=== PATIENT | male | born 1935 | race American Indian/Alaskan Native ===

== ENCOUNTER 2017-06-10 10:35 | Observation (INO) | payer OTHER ==
--- NOTE | 2017-06-10 12:13 | PDOC ---
History of Present Illness - General Chief Complaint: Lightheaded Stated Complaint: DIZZINESS Time Seen by Provider: 06/10/17 11:18 History Source: Patient, Family (daughter is translating) Exam Limitations: No Limitations - History of Present Illness Initial Comments: 06/10/17 12:07 The patient is a 81M with a PMH of HTN, pacemaker, and gout who presents to the ED with complaints of dizziness. The patient states that he has had 1 second episodes of the room spinning on and off for 3 weeks. He had an episode last night and that is what brought him to the ER this morning. He states that after his episodes of spinning, his feels his heart race and then slow down. This happens mostly at night when he lays down. He denies any symptoms of CP, SOB, nausea, vomiting, or lightheadedness during these episodes. Past History - Past Medical History Allergies/Adverse Reactions: Allergies Allergy/AdvReac Type Severity Reaction Status Date / Time No Known Allergies Allergy Verified 06/10/17 10:46 Home Medications: Ambulatory Orders Allopurinol [Zyloprim -] 100 mg PO DAILY 04/16/17 Amlodipine Besylate 5 mg PO DAILY 04/16/17 Indomethacin [Indocin -] 50 mg PO TID #21 capsule 04/16/17 Cardiac Disorders: Yes COPD: No HTN: Yes Hypercholesterolemia: Yes - Surgical History Cardiac Surgery: Yes (PACEMAKER) - Immunization History Immunization Up to Date: Yes - Suicide/Smoking/Psychosocial Hx Smoking History: Never smoked Hx Alcohol Use: No Drug/Substance Use Hx: No Substance Use Type: None Review of Systems - Review of Systems Able to Perform ROS?: Yes Comments:: 06/10/17 15:43 GENERAL/CONSTITUTIONAL: No fever or chills. No weakness. HEAD, EYES, EARS, NOSE AND THROAT: No change in vision. No ear pain or discharge. No sore throat. GASTROINTESTINAL: No nausea, vomiting, diarrhea, constipation, or abdominal pain. GENITOURINARY: No dysuria, frequency, hematuria, or change in urination. CARDIOVASCULAR: No chest pain, palpitations, or lightheadedness. RESPIRATORY: No cough, wheezing, shortness of breath, or hemoptysis. MUSCULOSKELETAL: No joint or muscle swelling or pain. No neck or back pain. SKIN: No rash or lesions. NEUROLOGIC: Positive for dizziness/vertiginous symptoms. Positive for numbness of his L temporal scalp. No headache, tingling, weakness, loss of consciousness , or change in strength/sensation. ENDOCRINE: No increased thirst. No abnormal weight change. HEMATOLOGIC/LYMPHATIC: No anemia, easy bleeding, or history of blood clots. ALLERGIC/IMMUNOLOGIC: No hives or skin allergy. Is the patient limited [place] proficient: No *Physical Exam - Vital Signs Last Vital Signs Temp Pulse Resp BP Pulse Ox 98 H 18 113/72 99 06/10/17 10:43 06/10/17 10:43 06/10/17 10:43 06/10/17 10:43 - Physical Exam Comments: 06/10/17 15:44 GENERAL: Well developed, well nourished. Awake and alert. No acute distress. HEENT: Normocephalic, atraumatic. Hearing grossly normal. Moist mucous membranes. PERRLA, EOMI. No conjunctival pallor. Sclera are non-icteric. Oropharynx is clear. NECK: Supple. Full ROM. No JVD. Carotid pulses 2+ and symmetric, without bruits. CARDIOVASCULAR: Regular rate and rhythm. No murmurs, rubs, or gallops. Distal pulses are 2+ and symmetric. PULMONARY: No evidence of respiratory distress. Lungs clear to auscultation bilaterally. No wheezing, rales or rhonchi. ABDOMINAL: Soft. Non-tender. Non-distended. No rebound or guarding. No organomegaly. Normoactive bowel sounds. GENITOURINARY: No CVA tenderness bilaterally. MUSCULOSKELETAL: Normal range of motion at all joints. No bony deformities or tenderness. EXTREMITIES: No cyanosis. No clubbing. No edema. No calf tenderness. SKIN: Warm and dry. Normal capillary refill. No rashes. No jaundice. NEUROLOGICAL: Alert, awake, appropriate. Cranial nerves 2-12 intact. No deficits to light touch and temperature in face, upper extremities and lower extremities. No motor deficits in the in face, upper extremities and lower extremities. Normal speech. Gait is normal without ataxia. PSYCHIATRIC: Cooperative. Good eye contact. Appropriate mood and affect. ED Treatment Course - LABORATORY CBC & Chemistry Diagram: 06/10/17 12:40 06/10/17 12:40 Medical Decision Making - Medical Decision Making 06/10/17 14:54 The patient is a 81M with a PMH of HTN and gout, s/p pacemaker, who presents to the ED with complaints of dizziness x 3 weeks and L sided scalp numbness. There is a strong concern for a small stroke that happened and is causing him to experience vertiginous symptoms. I am also concerned for temporal arteritis. Labs and imaging sent. CBC and CMP WNL. CRP elevated. Patient is refusing to stay in observation overnight for a neurology workup. I have explained to him that he has a much higher risk of larger stroke if this is already a smaller stroke. I explained to him the risks of temporal arteritis and that blindness can result secondary to this. The patient understands and still wants to leave AMA. 06/10/17 15:27 CRP is to 1.6. My attending and I have discussed that the patient cannot leave the hospital. Patient and daughter agree. Paging Dr. Toña Pickard. 06/10/17 15:45 CT head is negative for acute pathology. 06/10/17 17:21 Hospitalist gely. Neurologist Mykel hong. 06/10/17 17:35 Hospitalist team accepts for tele-obs. *DC/Admit/Observation/Transfer Diagnosis at time of Disposition: Stroke Qualifiers: CVA mechanism: other Qualified Code(s): I63.8 - Other cerebral infarction - Discharge Dispostion Condition at time of disposition: Stable Admit: Yes - Referrals - Patient Instructions - Post Discharge Activity
[2017-06-10 12:51] LABS: BASO # 0.1 #; BASO % 1.3 % (0-2.0); EOS # 0.2 #; EOS % 2.1 % (0-4.5); LYMPH # 2.4; MCH 25.1 pg (25.7-33.7); MCHC 32.6 g/dl (32.0-35.9); MEAN PLT VOLUME 6.1 fl (7.5-11.1); MONO # 0.8 #; NEUT # 6.3 #; NEUT % 64.1 % (42.8-82.8); PLATELET COUNT 284 K/MM3 (134-434); RDW 14.2 % (11.9-15.9); WHITE BLOOD COUNT 9.9 K/mm3 (4.0-10.0)
[2017-06-10 13:15] LABS: ALBUMIN 4.1 g/dl (3.4-5.0); ANION GAP 6 (8-16); CALCIUM 9.3 mg/dL (8.5-10.1); CO2 28 mmol/L (21-32); CREATININE 1.1 mg/dL (0.7-1.3); GLUCOSE,RANDOM 123 mg/dL (74-106); SGOT/AST 11 U/L (15-37); SGPT/ALT 17 U/L (12-78)
[2017-06-10 13:19] LABS: ALK PHOS 92 U/L (45-117); BILIRUBIN,TOTAL 0.5 mg/dL (0.2-1.0); CPK 86 IU/L (39-308); TOT PROT 8.1 g/dl (6.4-8.2); TROPONIN I < 0.02 ng/ml (0.00-0.05)
--- NOTE | 2017-06-10 13:34 | PDOC ---
Attending Attestation - HPI HPI: 06/10/17 13:48 The patient is a 81 year old male, with a significant past medical history of hypertension, s/p pacemaker, hyperlipidemia, and gout, who presents to the emergency department with 2 weeks of intermittent, non-positional, room spinning sensation which lasts for about a second and resolves on its own. He states he feels his heart go very fast than very slow as he experiences the room spinning. He denies chest pain, shortness of breath, headache. He denies fever, chills, nausea, vomit, diarrhea and constipation. He denies dysuria, frequency, urgency and hematuria. - Physicial Exam PE: 06/10/17 13:48 Vitals: Triage vital signs reviewed General Appearance: No acute distress, well nourished, well developed Head: Atraumatic Eyes: (+) Right horizontal nystagmus. Pupils equal reactive round, extraocular movement intact Ears: TM's normal bilaterally Nose: Nares patent bilaterally; no nasal congestion Throat: Posterior oropharynx without erythema, mucous membranes moist Neck: Supple; No nuchal rigidity Chest Wall: Nontender Cardiac: Regular rate and rhythm, no murmurs, no rubs, no gallops Lungs: Clear to auscultation bilateral, good air movement bilaterally Abdomen: Soft, nondistended, normal bowel sounds, nontender to palpation Genitourinary: Rectal: Exam deferred Extremities: Full range of motion to all extremities, no cyanosis, clubbing, or edema Skin: Warm and dry, no rashes or lesions, no rash, no petechiae Neuro: AOX3; Cranial Nerves 2-12 grossly intact, Strength intact to all extremities, Sensation intact to all extremities, gait normal Psych: Normal mood, normal affect - Medical Decision Making 06/10/17 13:50 The patient is a 81 year old male, with a significant past medical history of hypertension, s/p pacemaker, hyperlipidemia, and gout, who presents to the emergency department with 2 weeks of intermittent, non-positional, room spinning sensation which lasts for about a second and resolves on its own. Plan: EKG, CRP, erythrocyte sediment, and a head CT. Then will reassess ___- 06/10/17 13:53 Documentation prepared by Heena Brand, acting as claim review medical director for Boris Freeman MD <Heena Brand - Last Filed: 06/10/17 13:52> - ED Attending Attestation I have performed the following: I have examined & evaluated the patient, The case was reviewed & discussed with the resident, I agree w/resident's findings & plan, Exceptions are as noted - Medical Decision Making 06/10/17 16:00 Patient with 1 week history of intermittent vertigo also with some discomfort over his right religious. CRP elevated. We'll consult neurology to evaluate for temporal arteritis, treat with steroids and admit to medicine for further management. <Boris Freeman - Last Filed: 06/10/17 17:33>
[2017-06-10] MEDS ORDERED: predniSONE 20 MG TABLET (UD) PO ONE (17:04)
[2017-06-10] MEDS ORDERED: predniSONE 20 MG TABLET (UD) ONE ×2 (17:19→17:22)
[2017-06-10] MEDS ORDERED: MECLIZINE HCL 12.5 MG TABLET PO PRN (17:41)
--- NOTE | 2017-06-10 17:45 | HP ---
CHIEF COMPLAINT: " Room spinning around me" PCP: Doesn't remember the name HISTORY OF PRESENT ILLNESS: Patient is an 81-year-old Czech speaking patient came in to the ED with the chief complaint of " Vertigo". As per the patient, he started having vertigo about 3 weeks ago, started suddenly, lasting for "1 sec" associated with right sided numbness in the temporal area. It usually occurs while laying down. Denies rashes, visual loss, pain in the jaw, neck, shoulder, headache, loc, seizure, chest pain, sob, cough, palpitation, abdominal pain, nausea or vomiting. Bowel/Bladder habit normal. Sleep/Appetite normal. ER course was notable for: (1) Afebrile, hemodynamically stable, ESR 48, CRP-1.3 (2) EKG: No ST or T wave changes, paced rhythm (3) Prednisone 40mg Recent Travel: None. Came from [place] 25 yrs ago. PAST MEDICAL HISTORY: Hypertension, Pacemaker (15 months ago) , Gout PAST SURGICAL HISTORY: Pacemaker placed Social History: Smoking: Former smoker, smoked tobacco and cigs for 10 yrs, quit 30 yrs ago. Alcohol: Denies Drugs: Denies Family History: Non contributory Allergies No Known Allergies Allergy (Verified 06/10/17 10:46) HOME MEDICATIONS: Home Medications Medication Instructions Recorded Allopurinol [Zyloprim -] 100 mg PO DAILY 04/16/17 Amlodipine Besylate 5 mg PO DAILY 04/16/17 Indomethacin [Indocin -] 50 mg PO TID #21 capsule 04/16/17 REVIEW OF SYSTEMS CONSTITUTIONAL: Absent: fever, chills, diaphoresis, generalized weakness, malaise, loss of appetite, weight change HEENT: Absent: rhinorrhea, nasal congestion, throat pain, throat swelling, difficulty swallowing, mouth swelling, ear pain, eye pain, visual changes CARDIOVASCULAR: Absent: chest pain, syncope, palpitations, irregular heart rate, lightheadedness , peripheral edema RESPIRATORY: Absent: cough, shortness of breath, dyspnea with exertion, orthopnea, wheezing, stridor, hemoptysis GASTROINTESTINAL: Absent: abdominal pain, abdominal distension, nausea, vomiting, diarrhea, constipation, melena, hematochezia GENITOURINARY: Absent: dysuria, frequency, urgency, hesitancy, hematuria, flank pain, genital pain MUSCULOSKELETAL: Absent: myalgia, arthralgia, joint swelling, back pain, neck pain SKIN: Absent: rash, itching, pallor HEMATOLOGIC/IMMUNOLOGIC: Absent: easy bleeding, easy bruising, lymphadenopathy, frequent infections ENDOCRINE: Absent: unexplained weight gain, unexplained weight loss, heat intolerance, cold intolerance NEUROLOGIC: Present: Numbness in the right temporal area, Vertigo Absent: headache, focal weakness or paresthesias, dizziness, unsteady gait, seizure, mental status changes, bladder or bowel incontinence PSYCHIATRIC: Absent: anxiety, depression, suicidal or homicidal ideation, hallucinations. PHYSICAL EXAMINATION Vital Signs - 24 hr 06/10/17 10:43 Pulse Rate 98 H Respiratory 18 Rate Blood Pressure 113/72 O2 Sat by Pulse 99 Oximetry (%) GENERAL: Elderly male, lying comfortably in bed, Awake, alert, and fully oriented, in no acute distress. HEAD: Normal with no signs of trauma. EYES: EOM intact, no pallor or icterus. EARS, NOSE, THROAT: Ears normal. Moist mucous membranes. NECK: Supple. LUNGS: B/L Breath sounds equal, clear to auscultation bilaterally. No wheezes, and no crackles. No accessory muscle use. HEART: Regular rate and rhythm, normal S1 and S2 without murmur. ABDOMEN: Soft, nontender, not distended, normoactive bowel sounds, no guarding, no rebound, no masses. No hepatomegaly or splenomegaly. MUSCULOSKELETAL: Normal range of motion at all joints. No bony deformities or tenderness. No CVA tenderness. UPPER EXTREMITIES: 2+ pulses, warm, well-perfused. No cyanosis. No clubbing. No peripheral edema. LOWER EXTREMITIES: 2+ pulses, warm, well-perfused. No calf tenderness. No peripheral edema. NEUROLOGICAL: No facial droop, power 5/5 in all extremities, Finger nose test normal, Reflexes 2+, Cranial nerves II-XII intact. Normal speech. Normal gait. PSYCHIATRIC: Cooperative. Good eye contact. Appropriate mood and affect. SKIN: Warm, dry, normal turgor, no rashes or lesions noted, normal capillary refill. Laboratory Results - last 24 hr 06/10/17 06/10/17 06/10/17 12:40 12:40 13:56 WBC 9.9 RBC 5.66 H Hgb 14.2 Hct 43.6 MCV 77.0 L MCH 25.1 L MCHC 32.6 RDW 14.2 Plt Count 284 MPV 6.1 L D Neutrophils % 64.1 Lymphocytes % 24.4 Monocytes % 8.1 Eosinophils % 2.1 Basophils % 1.3 ESR Sodium 134 L Potassium 4.7 Chloride 100 Carbon Dioxide 28 Anion Gap 6 L BUN 22 H Creatinine 1.1 D Creat Clearance w eGFR > 60 Random Glucose 123 H Calcium 9.3 Total Bilirubin 0.5 AST 11 L D ALT 17 Alkaline Phosphatase 92 D Creatine Kinase 86 Troponin I < 0.02 C-Reactive Protein 1.3 H Total Protein 8.1 D Albumin 4.1 D 06/10/17 13:56 WBC RBC Hgb Hct MCV MCH MCHC RDW Plt Count MPV Neutrophils % Lymphocytes % Monocytes % Eosinophils % Basophils % ESR 48 H Sodium Potassium Chloride Carbon Dioxide Anion Gap BUN Creatinine Creat Clearance w eGFR Random Glucose Calcium Total Bilirubin AST ALT Alkaline Phosphatase Creatine Kinase Troponin I C-Reactive Protein Total Protein Albumin ASSESSMENT/PLAN: Patient is an 81-year-old Czech speaking patient with significant past medical history of Hypertension and Gout came in to the ED with the chief complaint of " Vertigo". # Vertigo: Most likely due to BPPV c/o vertigo lasting for 1sec, positional + Unlikely Giant cell arteritis because ESR is not very elevated, no visual problems, no jaw pain, no pulsations in the temporal arteries, no headache Admit in Tele/Obs Continuous cardiac monitoring Meclizine 12.5mg PO TID PRN Discussed with Neurologist: Echo, carotid doppler to r/o other causes. # Hypertension-controlled Continue Amlodipine 5mg PO Daily # Gout-not in acute flare Continue Allopurinol 100mg PO Daily. # FEN Not in IV fluids, tolerating PO Electrolytes WNL Sodium controlled diet # Prophylaxis For GI: Not indicated For DVT: Early ambulation # Code Status: Full Code # Dispo: Duration of stay likely 1-2 days. Illness, Investigation and Plan of care explained to the patient. He verbalized understanding. Case discussed with Dr. Rios. Visit type - Emergency Visit Emergency Visit: Yes ED Registration Date: 06/10/17 Care time: The patient presented to the Emergency Department on the above date and was hospitalized for further evaluation of their emergent condition. - New Patient This patient is new to me today: Yes Date on this admission: 06/10/17 - Critical Care Critical Care patient: No
--- NOTE | 2017-06-10 18:01 | PN ---
Teaching Attending Note Name of Resident: Areli Diego ATTENDING PHYSICIAN STATEMENT I saw and evaluated the patient. I reviewed the resident's note and discussed the case with the resident. I agree with the resident's findings and plan as documented. SUBJECTIVE:81yo M with PMH HTn, gout and PPM presented to the ER with dizzyness. episodes occur only when laying down and last less than a second. been occuring for the past 3 weeks. assoc with R scalp numbness. no recent changes to medications. denies CP, SOB, fever, chills, blurred vision, vision loss, BADILLO, N/V/C/D OBJECTIVE: Last Vital Signs Temp Pulse Resp BP Pulse Ox 98 H 18 113/72 99 06/10/17 10:43 06/10/17 10:43 06/10/17 10:43 06/10/17 10:43 General NAD HEENT prominent R temporal artery, not pulsating, no nodules, not tender, no bruit CV S1 S2 RRR no carotid bruit LUngs CTA B/L no wheezing/rales/rhonchi abdomen soft NT/ND no abdominal bruit Extremities no pedal edema Neuro CN II -XII grossly intact strength and sensation grossly intact ASSESSMENT AND PLAN: 81yo M with PMH HTn, gout and PPM presented to the ER with dizzyness 1. Dizzyness- tele observation. continuous cardiac monitoring. concern for cerebellar infarct. check orthostatics. head CT negative. neuro consulted. concern by Er for temporal arteritis however low concern given no visual symptoms, BADILLO or pain over temporal region. elevated ESR but not suggestive of temporal arteritis. received prednisone 40mg in the ER. will hold for now. start meclizine prn 2. HTN- controlled. cont norvasc 3. gout- cont allopurinol 4. DVT ppx- EAM
[2017-06-10] MEDS: INDOMETHACIN 50 MG CAPSULE PO SCH (21:56)
--- NOTE | 2017-06-10 22:11 | CON.NEURO ---
Consult Consult Specialty:: neurology Reason for Consultation:: Temporal numbness - History of Present Illness Chief Complaint: Temporal numbness History of Present Illness: 81 Y/O M , originally from [place] w h/o HTN, s/p PPM P/W R temporal numbness. He states that he was at usual state of his health until 2 am yesterday when he woke up w heart palpitation and started having numbness and itching at R temporal ; he denies any visual symptoms , headache , neck pain , jaw claudication or temporal tenderness ; also c/o dizziness and room spinning sensation when lye flat for 3 weeks. 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 ) Physical Exam-Neuro Vital Signs: Vital Signs Temperature 98.0 F 06/10/17 18:17 Pulse Rate 85 06/10/17 18:17 Respiratory Rate 18 06/10/17 18:17 Blood Pressure 153/85 06/10/17 18:17 O2 Sat by Pulse Oximetry (%) 98 06/10/17 18:17 Constitutional: Yes: Well Nourished Neck: Yes: Supple Cardiovascular: Yes: Regular Rate and Rhythm Respiratory: Yes: CTA Bilaterally Musculoskeletal: Yes: WNL Labs: CBC, BMP 06/10/17 12:40 06/10/17 12:40 Imaging - Results Cat Scan: Report Reviewed (No acute events), Image Reviewed Assessment/Plan 81 y/o M p/w dizziness for the past 3 months and R temporal numbness / itching from yesterday , on exam no temporal tenderness or jaw claudication; no weakness or sensory deficit; ESR mildly elevated and CTH wo no acute events ; I doubt temporal arteritis ; ? underlying zoster preliminary symptoms ; Dizziness due to BPV . -repeat CTH wo in 24 hours - ot compatible w MRI -D/C steroid -CAROTID U/S -ECHO -B12, TSH, RPR, Vit D Health maintenance per primary team. Thx MATTHEW Rod MD [phone]
[2017-06-11] MEDS ORDERED: ACETAMINOPHEN 325 MG TABLET (FP) PO PRN (02:37)
[2017-06-11 02:53] VITALS: BMI 24.0
[2017-06-11] MEDS ORDERED: PT OWN MED DRAWER 7, Y5N ONE (06:13)
[2017-06-11] MEDS: INDOMETHACIN 50 MG CAPSULE PO SCH (06:30)
[2017-06-11 07:38] LABS: BASO % 0.4 % (0-2.0); LYMPH # 1.4; MCH 25.1 pg (25.7-33.7); MCHC 32.9 g/dl (32.0-35.9); MEAN CELL VOLUME 76.1 fl (80-96); MEAN PLT VOLUME 6.3 fl (7.5-11.1); MONO # 0.4 #; NEUT # 6.5 #; NEUT % 78.4 % (42.8-82.8); PLATELET COUNT 284 K/MM3 (134-434); WHITE BLOOD COUNT 8.2 K/mm3 (4.0-10.0)
[2017-06-11 07:51] LABS: ALBUMIN 3.3 g/dl (3.4-5.0); ANION GAP 10 (8-16); CALCIUM 9.3 mg/dL (8.5-10.1); CO2 24 mmol/L (21-32); GLUCOSE,RANDOM 189 mg/dL (74-106); SGPT/ALT 15 U/L (12-78)
[2017-06-11 07:54] LABS: ALK PHOS 81 U/L (45-117); BILIRUBIN,TOTAL 0.5 mg/dL (0.2-1.0); CREATININE 1.1 mg/dL (0.7-1.3); SGOT/AST 8 U/L (15-37); TOT PROT 7.6 g/dl (6.4-8.2)
[2017-06-11 09:02] VITALS: BP 153/85; PULSE 89; TEMP 97.9
[2017-06-11] MEDS ORDERED: ALLOPURINOL 100 MG TABLET (FP) PO SCH (10:00)
[2017-06-11] MEDS ORDERED: amLODIPine BESYLATE 5 MG TABLET (FP) PO SCH (10:00)
--- NOTE | 2017-06-11 11:11 | EKG ---
Test Reason : Blood Pressure : / mmHG Vent. Rate : 074 BPM Atrial Rate : 074 BPM P-R Int : 150 ms QRS Dur : 164 ms QT Int : 448 ms P-R-T Axes : 076 -56 118 degrees QTc Int : 497 ms Atrial-sensed ventricular-paced rhythm ABNORMAL ECG NO PREVIOUS ECGS AVAILABLE CLINICAL CORRELATION IS RECOMMENDED Confirmed by BETY LEON, LEVI ([id number]) on 06/11/2017 11:10:43 AM Referred By: Confirmed By:LEVI ALBERT MD
--- NOTE | 2017-06-11 11:46 | DS ---
Physical Exam: SUBJECTIVE: Patient seen and examined. no repeated episodes duriong hospital stay. denies PC, SOB, fever, chills, dysathric speech or weakness greater on one side. OBJECTIVE: Vital Signs Period Temp Pulse Resp BP Sys/Cuevas Pulse Ox Last 24 Hr 97.4 F-98.0 F 80-100 18-22 138-160/80-90 95-98 PHYSICAL EXAM GENERAL: The patient is awake, alert, and fully oriented, in no acute distress. HEAD: Normal with no signs of trauma. EYES: PERRL, extraocular movements intact, sclera anicteric, conjunctiva clear. ENT: Ears normal, nares patent, oropharynx clear without exudates, moist mucous membranes. NECK: Trachea midline, full range of motion, supple. LUNGS: Breath sounds equal, clear to auscultation bilaterally, no wheezes, no crackles, no accessory muscle use. HEART: Regular rate and rhythm, S1, S2 without murmur, rub or gallop. ABDOMEN: Soft, nontender, nondistended, normoactive bowel sounds, no guarding, no rebound, no hepatosplenomegaly, no masses. EXTREMITIES: 2+ pulses, warm, well-perfused, no edema. NEUROLOGICAL: Cranial nerves II through XII grossly intact. Normal speech, gait not observed. PSYCH: Normal mood, normal affect. SKIN: Warm, dry, normal turgor, no rashes or lesions noted. LABS Laboratory Results - last 24 hr 06/10/17 06/10/17 06/10/17 12:40 12:40 13:56 WBC 9.9 RBC 5.66 H Hgb 14.2 Hct 43.6 MCV 77.0 L MCH 25.1 L MCHC 32.6 RDW 14.2 Plt Count 284 MPV 6.1 L D Neutrophils % 64.1 Lymphocytes % 24.4 Monocytes % 8.1 Eosinophils % 2.1 Basophils % 1.3 ESR Sodium 134 L Potassium 4.7 Chloride 100 Carbon Dioxide 28 Anion Gap 6 L BUN 22 H Creatinine 1.1 D Creat Clearance w eGFR > 60 Random Glucose 123 H Calcium 9.3 Total Bilirubin 0.5 AST 11 L D ALT 17 Alkaline Phosphatase 92 D Creatine Kinase 86 Troponin I < 0.02 C-Reactive Protein 1.3 H Total Protein 8.1 D Albumin 4.1 D 06/10/17 06/11/17 06/11/17 13:56 06:30 06:30 WBC 8.2 RBC 5.25 Hgb 13.1 Hct 39.9 MCV 76.1 L MCH 25.1 L MCHC 32.9 RDW 14.0 Plt Count 284 MPV 6.3 L Neutrophils % 78.4 D Lymphocytes % 16.5 D Monocytes % 4.7 Eosinophils % 0.0 D Basophils % 0.4 ESR 48 H Sodium 132 L Potassium 4.9 Chloride 98 Carbon Dioxide 24 Anion Gap 10 BUN 21 H Creatinine 1.1 Creat Clearance w eGFR > 60 Random Glucose 189 H D Calcium 9.3 Total Bilirubin 0.5 AST 8 L D ALT 15 Alkaline Phosphatase 81 Creatine Kinase Troponin I C-Reactive Protein Total Protein 7.6 Albumin 3.3 L HOSPITAL COURSE: Date of Admission:06/10/17 Date of Discharge: 06/11/17 admitting diagnosis: Dizzyness. r/o CVA Pre hospital course 81yo M with PMH HTn, gout and PPM presented to the ER with dizzyness. episodes occur only when laying down and last less than a second. been occuring for the past 3 weeks. assoc with R scalp numbness. no recent changes to medications. denies CP, SOB, fever, chills, blurred vision, vision loss, BADILLO, N/V/C/D Subsequent hospital course Tele observation. orthostatics negative. CT head and carotid dopplers negative. concern for temporal arteritis and received a dose of steroids but symptoms not consistent with this. seen by neurologist whom agreed. Recommended repeating CT head which patient and son refused. has appt with PMD on 06/15/17. d/c home Minutes to complete discharge: 40 Discharge Summary Reason For Visit: CEREBROVASCULAR ACCIDNET Current Active Problems Dizziness (Acute) Stroke (Acute) Condition: Stable - Instructions Diet, Activity, Other Instructions: You were admitted to the hospital because you were dizzy. We were concern you were having a stroke or mini stroke known as TIA Reports here were negative. we recommended repeating the CT scan of your head but you refused. Increase your fluid intake. You should drink more water Follow up with your primary care doctor on 06/15/17. Inform him you were hospitalized for your dizzyness. If your dizzyness returns make an appointment with neurology. Information on the one you saw here has been provided If your symptoms worsen or develop weakness on one side of your body or inability to speak return to the hospital. Referrals: Josias Valentin MD [Staff Physician] - Disposition: HOME - Home Medications Comprehensive Discharge Medication List: Ambulatory Orders Allopurinol [Zyloprim -] 100 mg PO DAILY 04/16/17 Amlodipine Besylate 5 mg PO DAILY 04/16/17 Indomethacin [Indocin -] 50 mg PO TID #21 capsule 04/16/17 This patient is new to me today: No Emergency Visit: Yes ED Registration Date: 06/10/17 Care time: The patient presented to the Emergency Department on the above date and was hospitalized for further evaluation of their emergent condition. Critical Care patient: No - Discharge Referral Referred to [facility] Med P.C.: No
== END 2017-06-11 11:57 | disposition home or self-care (01) ==
LOC: JER 10:35 → JERBED 17:36 → J4S 20:21
PROVIDERS: ADMIT Internal Medicine; ATTEND Internal Medicine
DX: I63.8 Other cerebral infarction (principal); R55 Syncope and collapse; I10 Essential (primary) hypertension; E78.5 Hyperlipidemia, unspecified; Z95.0 Presence of cardiac pacemaker; M10.9 Gout, unspecified
CPT/HCPCS: 36415; 70450-TC; 80053; 82550; 84484; 85025; 85651; 86140; 93005; 93010; 93880-TC; 99285-25; G0378

== ENCOUNTER 2020-09-24 15:55 | Emergency (ER) | payer OTHER ==
[2020-09-24 16:33] VITALS: TEMP 98.5; BMI 20.9
[2020-09-24] MEDS ORDERED: SODIUM CHLORIDE 0.9% 500 ML INFUS.BAG IV ONE (18:16)
[2020-09-24 19:20] LABS: EOS % 0.8 % (0-4.5); HEMATOCRIT 41.6 % (35.4-49); HEMOGLOBIN 13.9 GM/dL (11.7-16.9); MCH 25.6 pg (25.7-33.7); MCHC 33.5 g/dl (32.0-35.9); MEAN CELL VOLUME 76.6 fl (80-96); MEAN PLT VOLUME 6.4 fl (7.5-11.1); MONO % 6.7 % (3.8-10.2); NEUT % 76.5 % (42.8-82.8); PLATELET COUNT 357 K/MM3 (134-434); RBC 5.42 M/mm3 (4.00-5.60); RDW 15.3 % (11.9-15.9); WHITE BLOOD COUNT 11.7 K/mm3 (4.0-10.0)
[2020-09-24 19:32] LABS: CHLORIDE 102 mmol/L (98-107); SODIUM 133 mmol/L (136-145)
[2020-09-24 19:35] LABS: CALCIUM 9.3 mg/dL (8.5-10.1)
[2020-09-24 19:36] LABS: ALBUMIN 3.4 g/dl (3.4-5.0); ANION GAP 8 MMOL/L (8-16); BLOOD UREA NITROGEN 19.3 mg/dL (7-18); CO2 24 mmol/L (21-32); GLUCOSE,RANDOM 123 mg/dL (74-106); MAGNESIUM 1.9 mg/dL (1.8-2.4)
[2020-09-24 19:39] LABS: CREATININE 1.1 mg/dL (0.55-1.3); PHOSPHOROUS 3.1 mg/dL (2.5-4.9); SGOT/AST 21 U/L (15-37); SGPT/ALT 28 U/L (13-61)
[2020-09-24 19:40] LABS: BILIRUBIN,TOTAL 0.7 mg/dL (0.2-1); TOT PROT 7.5 g/dl (6.4-8.2)
[2020-09-24 19:41] LABS: ALK PHOS 106 U/L (45-117)
[2020-09-24 20:09] LABS: ANISOCYTOSIS 1+; MACROCYTOSIS 0; PLATELET ESTIMATE NORMAL
[2020-09-24 22:14] LABS: URINE APPEARANCE CLEAR; URINE BILIRUBIN NEGATIVE (NEGATIVE); URINE COLOR YELLOW; URINE GLUCOSE (UA) NEGATIVE (NEGATIVE); URINE KETONE NEGATIVE (NEGATIVE); URINE LEUK ESTERASE NEGATIVE (NEGATIVE); URINE NITRITE NEGATIVE (NEGATIVE); URINE PROTEIN NEGATIVE (NEGATIVE); URINE UROBILINOGEN 0.2 mg/dL (0.2-1.0)
[2020-09-24 23:45] VITALS: BP 127/71; PULSE 84
[2020-09-25 07:08] LABS: SARS-CoV-2 NAA Not Detected (Not Detected)
== END 2020-09-25 00:12 | disposition home or self-care (01) ==
LOC: JER 15:55
DX: R53.1 Weakness (principal); R19.7 Diarrhea, unspecified
CPT/HCPCS: 36415; 71045-TC-FY; 74177-TC; 80053; 81003; 82550; 83735; 84100; 84484; 85025; 93005; 93010; 99285-25; C9803; Q9967; U0003; U0005

== ENCOUNTER 2020-10-19 09:36 | Emergency (ER) | payer OTHER ==
[2020-10-19 09:46] VITALS: BP 167/79; PULSE 97; TEMP 97.6; BMI 23.8
[2020-10-20 02:09] LABS: SARS-CoV-2 NAA Not Detected (Not Detected)
== END 2020-10-19 11:48 | disposition home or self-care (01) ==
LOC: JER 09:36
DX: J06.9 Acute upper respiratory infection, unspecified (principal)
CPT/HCPCS: 87880; 99284-25; C9803; U0003; U0005

== ENCOUNTER 2021-07-20 09:56 | Emergency (ER) | payer OTHER ==
[2021-07-20 10:11] VITALS: BMI 27.4
[2021-07-20 12:02] LABS: BASO % 1.3 % (0-2.0); HEMATOCRIT 42.3 % (35.4-49); HEMOGLOBIN 14.2 GM/dL (11.7-16.9); LYMPH % 20.2 % (8-40); MCH 26.5 pg (25.7-33.7); MCHC 33.6 g/dl (32.0-35.9); MEAN CELL VOLUME 78.8 fl (80-96); MEAN PLT VOLUME 6.5 fl (7.5-11.1); NEUT % 69.5 % (42.8-82.8); PLATELET COUNT 360 10^3/uL (134-434); RBC 5.37 M/mm3 (4.00-5.60); RDW 15.4 % (11.9-15.9); WHITE BLOOD COUNT 9.8 K/mm3 (4.0-10.0)
[2021-07-20 12:24] LABS: INR 1.11 (0.83-1.09); PROTHROMBIN TIME (PATIENT) 12.8 SEC (9.7-13.0)
[2021-07-20 12:28] LABS: BLOOD UREA NITROGEN 21.2 mg/dL (7-18)
[2021-07-20 12:29] LABS: ALBUMIN 3.4 g/dl (3.4-5.0); CALCIUM 9.7 mg/dL (8.5-10.1)
[2021-07-20 12:30] LABS: URIC ACID 7.8 mg/dL (2.6-7.2)
[2021-07-20 12:33] LABS: BILIRUBIN,TOTAL 0.6 mg/dL (0.2-1); CREATININE 1.1 mg/dL (0.55-1.3); TOT PROT 7.3 g/dl (6.4-8.2)
[2021-07-20] MEDS ORDERED: COLCHICINE 0.6 MG TAB PO ONE (12:59)
[2021-07-20 13:38] LABS: ERYTHROCYTE SEDIMENTATION RATE 31 mm/hr (0-20)
[2021-07-20 14:42] VITALS: BP 133/59; PULSE 70
[2021-07-20 14:43] VITALS: TEMP 98.2
== END 2021-07-20 14:43 | disposition home or self-care (01) ==
LOC: JER 09:56
DX: M10.9 Gout, unspecified (principal)
CPT/HCPCS: 36415; 73130-TC-LT-FY; 80053; 84550; 85025; 85610; 85651; 86140; 87040; 99284-25

== ENCOUNTER 2021-12-08 11:34 | Emergency (ER) | payer OTHER ==
[2021-12-08 12:23] VITALS: BMI 17.2
[2021-12-08] MEDS ORDERED: ASPIRIN 81 MG CHEWABLE TABLETS PO ONE (12:56)
[2021-12-08 14:39] LABS: BASO % 1.9 % (0-2.0); HEMATOCRIT 42.4 % (35.4-49); HEMOGLOBIN 14.2 GM/dL (11.7-16.9); LYMPH % 29.9 % (8-40); MCH 26.1 pg (25.7-33.7); MCHC 33.6 g/dl (32.0-35.9); MEAN CELL VOLUME 77.8 fl (80-96); MEAN PLT VOLUME 6.1 fl (7.5-11.1); MONO % 9.5 % (3.8-10.2); NEUT % 54.7 % (42.8-82.8); PLATELET COUNT 327 10^3/uL (134-434); RBC 5.44 M/mm3 (4.00-5.60); RDW 15.5 % (11.9-15.9); WHITE BLOOD COUNT 8.4 K/mm3 (4.0-10.0)
[2021-12-08 14:51] LABS: INR 1.06 (0.83-1.09); PROTHROMBIN TIME (PATIENT) 12.2 SEC (9.7-13.0)
[2021-12-08 14:54] LABS: ACTIVATED PTT 30.9 SECONDS (25.2-36.5)
[2021-12-08 14:56] LABS: CALCIUM 9.3 mg/dL (8.5-10.1)
[2021-12-08 14:57] LABS: ALBUMIN 3.4 g/dl (3.4-5.0); BLOOD UREA NITROGEN 22.5 mg/dL (7-18); MAGNESIUM 2.3 mg/dL (1.8-2.4)
[2021-12-08 15:01] LABS: BILIRUBIN,TOTAL 0.5 mg/dL (0.2-1); TOT PROT 7.3 g/dl (6.4-8.2)
[2021-12-08] MEDS ORDERED: ASPIRIN 81 MG CHEWABLE TABLETS ONE (15:11)
[2021-12-08 16:52] VITALS: BP 163/73; PULSE 77; TEMP 97.5
== END 2021-12-08 17:53 | disposition left against medical advice (07) ==
LOC: JER 11:34
DX: M79.602 Pain in left arm (principal)
CPT/HCPCS: 36415; 71045-TC-FY; 80053; 83735; 83880; 84484; 85025; 85610; 85730; 93005; 93010; 99285-25

== ENCOUNTER 2022-01-08 11:05 | Observation (INO) | payer OTHER ==
[2022-01-08 12:56] LABS: BASO % 0.9 % (0-2.0); EOS % 3.7 % (0-4.5); HEMATOCRIT 43.6 % (35.4-49); HEMOGLOBIN 14.4 GM/dL (11.7-16.9); LYMPH % 30.4 % (8-40); MCH 25.8 pg (25.7-33.7); MEAN CELL VOLUME 78.1 fl (80-96); MEAN PLT VOLUME 6.4 fl (7.5-11.1); MONO % 7.9 % (3.8-10.2); NEUT % 57.1 % (42.8-82.8); PLATELET COUNT 368 10^3/uL (134-434); RBC 5.58 M/mm3 (4.00-5.60); RDW 15.5 % (11.9-15.9); WHITE BLOOD COUNT 7.4 K/mm3 (4.0-10.0)
[2022-01-08 13:14] LABS: INR 1.08 (0.83-1.09); PROTHROMBIN TIME (PATIENT) 12.4 SEC (9.7-13.0)
[2022-01-08 13:28] LABS: CALCIUM 9.3 mg/dL (8.5-10.1)
[2022-01-08 13:29] LABS: ALBUMIN 3.6 g/dl (3.4-5.0); BLOOD UREA NITROGEN 26.6 mg/dL (7-18)
[2022-01-08 13:34] LABS: BILIRUBIN,TOTAL 0.6 mg/dL (0.2-1); TOT PROT 7.2 g/dl (6.4-8.2)
[2022-01-08] MEDS ORDERED: ACETAMINOPHEN 325 MG TABLET (FP) PO PRN (16:31)
[2022-01-08] MEDS ORDERED: ATORVASTATIN CA 20 MG TABLET (FP) PO SCH (22:00)
[2022-01-09] MEDS: HEPARIN NA (PORCINE) 5,000 UNITS/ML 1ML VIAL SQ SCH ×2 (01:25→09:18)
[2022-01-09] MEDS: SACUBITRIL/VALSARTAN 24 MG-26 MG TABLET PO SCH ×2 (01:25→09:18)
[2022-01-09] MEDS: metoPROLOL SUCCINATE 25 MG TAB.SR.24H (FP) PO SCH ×2 (01:29→09:17)
[2022-01-09 02:14] VITALS: RESP 18; BMI 22.9
[2022-01-09 09:09] LABS: HEMATOCRIT 43.4 % (35.4-49); HEMOGLOBIN 14.3 GM/dL (11.7-16.9); MCH 25.9 pg (25.7-33.7); MCHC 32.9 g/dl (32.0-35.9); MEAN CELL VOLUME 78.7 fl (80-96); MEAN PLT VOLUME 6.1 fl (7.5-11.1); PLATELET COUNT 358 10^3/uL (134-434); RBC 5.52 M/mm3 (4.00-5.60); RDW 15.3 % (11.9-15.9); WHITE BLOOD COUNT 9.2 K/mm3 (4.0-10.0)
[2022-01-09 09:35] LABS: CALCIUM 9.5 mg/dL (8.5-10.1)
[2022-01-09 09:36] LABS: ALBUMIN 3.4 g/dl (3.4-5.0); BLOOD UREA NITROGEN 25.8 mg/dL (7-18)
[2022-01-09 09:39] LABS: CREATININE 1.1 mg/dL (0.55-1.3)
[2022-01-09] MEDS ORDERED: FUROSEMIDE 20 MG TABLET (FP) PO SCH (10:00)
[2022-01-09] MEDS ORDERED: ASPIRIN COATED 81 MG TABLET.EC PO SCH (10:00)
[2022-01-09] MEDS ORDERED: ALLOPURINOL 100 MG TABLET (FP) PO SCH (10:00)
[2022-01-09 13:17] LABS: N-TERMINAL BNP 325.2 pg/ml (5-450)
[2022-01-09 15:11] VITALS: BP 148/70; PULSE 70; TEMP 97.5
== END 2022-01-09 19:00 | disposition home or self-care (01) ==
LOC: JER 11:05 → JERBED 15:41 → J4S 01-09 01:00
PROVIDERS: ADMIT Family Medicine; ATTEND Family Medicine
PROC: 3E013GC Introduction of Other Therapeutic Substance into Subcutaneous Tissue, Percutaneous Approach (ICD-10-PCS; principal; 2022-01-08)
DX: R07.89 Other chest pain (principal); I10 Essential (primary) hypertension; I25.10 Atherosclerotic heart disease of native coronary artery without angina pectoris; I25.5 Ischemic cardiomyopathy; M10.9 Gout, unspecified; R73.03 Prediabetes; Z95.0 Presence of cardiac pacemaker; Z95.5 Presence of coronary angioplasty implant and graft
CPT/HCPCS: 0241U-QW; 36415; 71046-TC-FY; 80053; 80061; 82550; 83036; 83690; 83880; 84439; 84443; 84484; 85025; 85027; 85610; 85730; 93005; 93010; 96372; 99285-25; G0378; J1644

== ENCOUNTER 2022-08-02 09:31 | Inpatient (IN) | payer OTHER ==
[2022-08-02 09:39] VITALS: BMI 24.7
[2022-08-02 11:22] LABS: VENOUS O2 SATURATION 68.3 % (70-80); VENOUS PCO2 37.8 mmHg (38-52); VENOUS PH 7.36 (7.310-7.410)
[2022-08-02 11:23] LABS: BASO % 1.1 % (0-2.0); EOS % 1.2 % (0-4.5); HEMATOCRIT 41.3 % (35.4-49); HEMOGLOBIN 13.6 GM/dL (11.7-16.9); LYMPH % 17.6 % (8-40); MCH 26.5 pg (25.7-33.7); MCHC 32.9 g/dl (32.0-35.9); MEAN CELL VOLUME 80.5 fl (80-96); MEAN PLT VOLUME 6.4 fl (7.5-11.1); MONO % 8.5 % (3.8-10.2); NEUT % 71.6 % (42.8-82.8); PLATELET COUNT 398 10^3/uL (134-434); RBC 5.13 M/mm3 (4.00-5.60); RDW 14.1 % (11.9-15.9); WHITE BLOOD COUNT 12.9 K/mm3 (4.0-10.0)
[2022-08-02 11:52] LABS: ALBUMIN 3.2 g/dl (3.4-5.0); CALCIUM 9.5 mg/dL (8.5-10.1); MAGNESIUM 2.4 mg/dL (1.8-2.4)
[2022-08-02 11:55] LABS: CREATININE 1.4 mg/dL (0.55-1.3)
[2022-08-02 11:57] LABS: BILIRUBIN,TOTAL 0.6 mg/dL (0.2-1); TOT PROT 7.3 g/dl (6.4-8.2)
[2022-08-02] MEDS ORDERED: CEFTRIAXONE 1,000 MG in DEXTROSE 5%-WATER - 50 ML IVPB ONE (12:55)
[2022-08-02] MEDS ORDERED: AZITHROMYCIN IVPB 500 MG in DEXTROSE 5%-WATER - 250 ML IVPB ONE (12:56)
[2022-08-02] MEDS ORDERED: CEFTRIAXONE 1 GM/50 ML BAG ONE (13:11)
[2022-08-02] MEDS ORDERED: AZITHROMYCIN IVPB 500 MG/250 ML BAG IVPB ONE (13:11)
[2022-08-02] MEDS: ALBUTEROL SO4 2.5/IPRATROPIUM 0.5 INH SOL 3 ML VIAL.NEB. NEB SCH ×2 (16:20→19:53)
[2022-08-02] MEDS: metoPROLOL SUCCINATE 25 MG TAB.SR.24H (FP) PO SCH (22:34)
[2022-08-02] MEDS: ATORVASTATIN CA 10 MG TABLET (FP) PO SCH (22:34)
[2022-08-02] MEDS: HEPARIN NA (PORCINE) 5,000 UNITS/ML 1ML VIAL SQ SCH (22:34)
[2022-08-02] MEDS: SACUBITRIL/VALSARTAN 24 MG-26 MG TABLET PO SCH (22:34)
[2022-08-03] MEDS: ALBUTEROL SO4 2.5/IPRATROPIUM 0.5 INH SOL 3 ML VIAL.NEB. NEB SCH ×4 (08:06→20:38)
[2022-08-03 09:43] LABS: EOS % 2.5 % (0-4.5); HEMATOCRIT 41.5 % (35.4-49); HEMOGLOBIN 13.7 GM/dL (11.7-16.9); LYMPH % 30.9 % (8-40); MCHC 33.1 g/dl (32.0-35.9); MEAN CELL VOLUME 81.7 fl (80-96); MEAN PLT VOLUME 6.6 fl (7.5-11.1); MONO % 7.9 % (3.8-10.2); NEUT % 57.7 % (42.8-82.8); PLATELET COUNT 448 10^3/uL (134-434); RBC 5.09 M/mm3 (4.00-5.60); RDW 13.9 % (11.9-15.9); WHITE BLOOD COUNT 10.5 K/mm3 (4.0-10.0)
[2022-08-03 09:49] LABS: CALCIUM 9.5 mg/dL (8.5-10.1)
[2022-08-03 09:50] LABS: ALBUMIN 3.2 g/dl (3.4-5.0); BLOOD UREA NITROGEN 28.6 mg/dL (7-18); MAGNESIUM 2.2 mg/dL (1.8-2.4)
[2022-08-03 09:53] LABS: CREATININE 1.4 mg/dL (0.55-1.3)
[2022-08-03 09:55] LABS: TOT PROT 7.3 g/dl (6.4-8.2)
[2022-08-03] MEDS: metoPROLOL SUCCINATE 25 MG TAB.SR.24H (FP) PO SCH ×2 (10:15→22:33)
[2022-08-03] MEDS: SPIRONOLACTONE 25 MG TABLET PO SCH (10:15)
[2022-08-03] MEDS: SACUBITRIL/VALSARTAN 24 MG-26 MG TABLET PO SCH ×2 (10:15→22:33)
[2022-08-03] MEDS: ASPIRIN COATED 81 MG TABLET.EC PO SCH (10:15)
[2022-08-03] MEDS: HEPARIN NA (PORCINE) 5,000 UNITS/ML 1ML VIAL SQ SCH ×2 (10:16→22:35)
[2022-08-03] MEDS: FUROSEMIDE 20 MG TABLET (FP) PO SCH (10:16)
[2022-08-03] MEDS: ALLOPURINOL 100 MG TABLET (FP) PO SCH (10:16)
[2022-08-03] MEDS: CEFTRIAXONE 1 GM in DEXTROSE 5%-WATER - 50 ML IVPB SCH (10:16)
[2022-08-03] MEDS ORDERED: ALBUTEROL SO4 0.083% IH SOL 2.5 MG/3 ML VIAL.NEB. NEB PRN (10:35)
[2022-08-03] MEDS: APIXABAN 2.5 MG TABLET PO SCH (22:33)
[2022-08-03] MEDS: ATORVASTATIN CA 10 MG TABLET (FP) PO SCH (22:33)
[2022-08-04] MEDS: ALBUTEROL SO4 2.5/IPRATROPIUM 0.5 INH SOL 3 ML VIAL.NEB. NEB SCH ×3 (07:25→15:55)
[2022-08-04] MEDS: CEFTRIAXONE 1 GM in DEXTROSE 5%-WATER - 50 ML IVPB SCH (09:21)
[2022-08-04] MEDS: ASPIRIN COATED 81 MG TABLET.EC PO SCH (09:21)
[2022-08-04] MEDS: metoPROLOL SUCCINATE 25 MG TAB.SR.24H (FP) PO SCH (09:21)
[2022-08-04] MEDS: SPIRONOLACTONE 25 MG TABLET PO SCH (09:21)
[2022-08-04] MEDS: ALLOPURINOL 100 MG TABLET (FP) PO SCH (09:21)
[2022-08-04] MEDS: SACUBITRIL/VALSARTAN 24 MG-26 MG TABLET PO SCH (09:21)
[2022-08-04] MEDS: FUROSEMIDE 20 MG TABLET (FP) PO SCH (09:21)
[2022-08-04] MEDS: APIXABAN 2.5 MG TABLET PO SCH (09:21)
[2022-08-04 15:13] VITALS: BP 101/64; PULSE 100; RESP 18; TEMP 98.2
== END 2022-08-04 17:37 | disposition home or self-care (01) | DRG 144 ==
LOC: JER 09:31 → JERBED 12:51 → OBSVTOIN 15:37 → J4S 17:22
PROVIDERS: ADMIT Family Medicine; ATTEND Family Medicine
DX: J20.9 Acute bronchitis, unspecified (principal); I13.0 Hypertensive heart and chronic kidney disease with heart failure and stage 1 through stage 4 chronic kidney disease, or unspecified chronic kidney disease; I42.0 Dilated cardiomyopathy; I25.5 Ischemic cardiomyopathy; I48.0 Paroxysmal atrial fibrillation; E78.5 Hyperlipidemia, unspecified; K21.9 Gastro-esophageal reflux disease without esophagitis; N18.9 Chronic kidney disease, unspecified; I50.9 Heart failure, unspecified; Z95.5 Presence of coronary angioplasty implant and graft; I25.119 Atherosclerotic heart disease of native coronary artery with unspecified angina pectoris
CPT/HCPCS: 0241U-QW; 36415; 71045-TC-FY; 80053; 82803; 83735; 84443; 84484; 85025; 87040; 87070; 87077; 87205; 87899; 93005; 93010; 94640; 99291; G0378; J1644

== ENCOUNTER 2022-09-17 09:34 | Emergency (ER) | payer OTHER ==
[2022-09-17 09:43] VITALS: BP 125/84; PULSE 92; RESP 18; TEMP 98.4; BMI 24.7
[2022-09-17] MEDS ORDERED: MINERAL OIL ENEMA 133 ML ENEMA PR ONE (10:05)
[2022-09-17 10:52] LABS: ALBUMIN 3.6 g/dl (3.4-5.0); BILIRUBIN,TOTAL 0.9 mg/dl (0.2-1); CALCIUM 9.8 mg/dl (8.5-10); CREATININE 1.5 mg/dl (0.55-1.3); TOT PROT 7.4 g/dl (6.4-8.2)
[2022-09-17] MEDS ORDERED: POLYETHYLENE GLYCOL (HEALTHYLAX) 3350 17 GM PACKET PO SCH (11:15)
[2022-09-17 12:11] LABS: BASO % 0.9 % (0-2.0); EOS % 0.9 % (0-4.5); HEMATOCRIT 40.1 % (35.4-49); HEMOGLOBIN 13.5 GM/dL (11.7-16.9); LYMPH % 15.2 % (8-40); MCH 26.2 pg (25.7-33.7); MCHC 33.8 g/dl (32.0-35.9); MEAN CELL VOLUME 77.6 fl (80-96); MEAN PLT VOLUME 6.5 fl (7.5-11.1); MONO % 7.6 % (3.8-10.2); NEUT % 75.4 % (42.8-82.8); PLATELET COUNT 380 10^3/uL (134-434); RBC 5.17 M/mm3 (4.00-5.60); RDW 14.6 % (11.9-15.9); WHITE BLOOD COUNT 12.2 K/mm3 (4.0-10.0)
== END 2022-09-17 12:40 | disposition home or self-care (01) ==
LOC: FER 09:34
DX: K59.09 Other constipation (principal)
CPT/HCPCS: 36415; 74018-TC-FY; 80053; 85025; 99284-25

== ENCOUNTER 2022-11-19 23:52 | Inpatient (IN) | payer OTHER ==
[2022-11-20 02:00] LABS: VENOUS BASE EXCESS 3.1 mmol/L (-2-2); VENOUS O2 SATURATION 42.6 % (70-80); VENOUS PCO2 54.3 mmHg (38-52); VENOUS PH 7.359 (7.310-7.410)
[2022-11-20 02:08] LABS: BASO % 1.5 % (0-2.0); EOS % 2.1 % (0-4.5); HEMATOCRIT 41.7 % (35.4-49); HEMOGLOBIN 13.9 GM/dL (11.7-16.9); LYMPH % 28.2 % (8-40); MCH 25.8 pg (25.7-33.7); MCHC 33.2 g/dl (32.0-35.9); MEAN CELL VOLUME 77.8 fl (80-96); MEAN PLT VOLUME 6.1 fl (7.5-11.1); MONO % 9.7 % (3.8-10.2); NEUT % 58.5 % (42.8-82.8); PLATELET COUNT 382 10^3/uL (134-434); RBC 5.36 M/mm3 (4.00-5.60)
[2022-11-20 02:18] LABS: INR 0.99 (0.83-1.09); PROTHROMBIN TIME (PATIENT) 11.5 SEC (9.7-13.0)
[2022-11-20 02:21] LABS: ACTIVATED PTT 29.1 SECONDS (25.2-36.5)
[2022-11-20 02:25] LABS: POTASSIUM 4.9 mmol/L (3.5-5.1)
[2022-11-20 02:28] LABS: ALBUMIN 3.3 g/dl (3.4-5.0); BLOOD UREA NITROGEN 33.1 mg/dL (7-18); CALCIUM 9.9 mg/dL (8.5-10.1)
[2022-11-20 02:31] LABS: CREATININE 1.4 mg/dL (0.55-1.3)
[2022-11-20 02:32] LABS: BILIRUBIN,TOTAL 0.5 mg/dL (0.2-1); TOT PROT 7.4 g/dl (6.4-8.2)
[2022-11-20] MEDS ORDERED: FOLIC ACID INJECTION - 1 MG, THIAMINE HCL 100 MG, MULTIVIT INJECTION ADULT 10 ML in SOD... IVPB ONE (02:38)
[2022-11-20] MEDS ORDERED: AZITHROMYCIN IVPB 500 MG in DEXTROSE 5%-WATER - 250 ML IVPB ONE (03:54)
[2022-11-20] MEDS ORDERED: CEFTRIAXONE 1 GM/50 ML BAG ONE (04:23)
[2022-11-20] MEDS ORDERED: AZITHROMYCIN IVPB 500 MG/250 ML BAG IVPB ONE (04:24)
[2022-11-20] MEDS ORDERED: ACETAMINOPHEN 325 MG TABLET (FP) PO PRN (04:51)
[2022-11-20] MEDS ORDERED: ALLOPURINOL 100 MG TABLET (FP) PO PRN (07:52)
[2022-11-20 09:17] LABS: EPI CELLS 7 /uL (0-25.1); HYALINE CASTS 2 /uL (0-3.1); PH,URINE 5.5 (5.0-8.0); URINE APPEARANCE CLEAR; URINE BACTERIA 3 /uL (0-1359); URINE BILIRUBIN NEGATIVE (NEGATIVE); URINE COLOR YELLOW; URINE GLUCOSE (UA) TRACE (NEGATIVE); URINE KETONE NEGATIVE (NEGATIVE); URINE LEUK ESTERASE TRACE (NEGATIVE); URINE NITRITE NEGATIVE (NEGATIVE); URINE PROTEIN TRACE (NEGATIVE); URINE RBC 9 /uL (0-23.9); URINE UROBILINOGEN 0.2 mg/dL (0.2-1.0); URINE WBC 26 /uL (0-25.8)
[2022-11-20] MEDS ORDERED: HEPARIN NA (PORCINE) 5,000 UNITS/ML 1ML VIAL SQ SCH (10:00)
[2022-11-20] MEDS ORDERED: SACUBITRIL/VALSARTAN 24 MG-26 MG TABLET PO SCH (10:00)
[2022-11-20] MEDS ORDERED: metoPROLOL SUCCINATE 25 MG TAB.SR.24H (FP) PO SCH (10:00)
[2022-11-20] MEDS ORDERED: SPIRONOLACTONE 25 MG TABLET PO SCH (10:00)
[2022-11-20 10:05] LABS: MAGNESIUM 2.2 mg/dL (1.8-2.4)
[2022-11-20 10:09] LABS: PHOSPHOROUS 3.6 mg/dL (2.5-4.9)
[2022-11-20] MEDS: FUROSEMIDE 20 MG TABLET (FP) PO SCH (10:31)
[2022-11-20] MEDS: APIXABAN 2.5 MG TABLET PO SCH ×2 (10:31→21:23)
[2022-11-20] MEDS: ASPIRIN COATED 81 MG TABLET.EC PO SCH (10:31)
[2022-11-20] MEDS: CALCIUM 500MG/VIT-D 200 UNITS COMBO TABLET (FP) PO SCH (10:32)
[2022-11-20 11:25] VITALS: BMI 22.3
[2022-11-20] MEDS: TAMSULOSIN HCL 0.4 MG CAP PO SCH (17:32)
[2022-11-20] MEDS: DUTASTERIDE 0.5 MG CAP (FP) PO SCH (17:32)
[2022-11-20] MEDS: ATORVASTATIN CA 10 MG TABLET (FP) PO SCH (21:24)
[2022-11-21] MEDS ORDERED: CEFTRIAXONE 1 GM in DEXTROSE 5%-WATER - 50 ML IVPB SCH (08:00)
[2022-11-21] MEDS ORDERED: AZITHROMYCIN IVPB 500 MG/250 ML BAG IVPB SCH (08:00)
[2022-11-21 08:49] LABS: BASO % 0.8 % (0-2.0); EOS % 3.1 % (0-4.5); HEMATOCRIT 38.6 % (35.4-49); HEMOGLOBIN 12.8 GM/dL (11.7-16.9); MCH 25.9 pg (25.7-33.7); MCHC 33.1 g/dl (32.0-35.9); MEAN CELL VOLUME 78.2 fl (80-96); MEAN PLT VOLUME 6.2 fl (7.5-11.1); MONO % 7.4 % (3.8-10.2); NEUT % 63.7 % (42.8-82.8); PLATELET COUNT 348 10^3/uL (134-434); RBC 4.94 M/mm3 (4.00-5.60); RDW 15.9 % (11.9-15.9); WHITE BLOOD COUNT 12.1 K/mm3 (4.0-10.0)
[2022-11-21 09:06] LABS: POTASSIUM 4.9 mmol/L (3.5-5.1)
[2022-11-21 09:08] LABS: CALCIUM 9.3 mg/dL (8.5-10.1)
[2022-11-21 09:13] LABS: CREATININE 1.1 mg/dL (0.55-1.3); PHOSPHOROUS 2.9 mg/dL (2.5-4.9)
[2022-11-21] MEDS ORDERED: LACTATED RINGERS SOLUTION 1,000 ML/1,000 ML INFUS.BAG IV STA (10:03)
[2022-11-21] MEDS ORDERED: SODIUM CHLORIDE 1,000 ML IV STA (10:05)
[2022-11-21 10:52] LABS: HEMATOCRIT 35.9 % (35.4-49); HEMOGLOBIN 11.7 GM/dL (11.7-16.9); MCH 25.9 pg (25.7-33.7); MCHC 32.5 g/dl (32.0-35.9); MEAN CELL VOLUME 79.8 fl (80-96); MEAN PLT VOLUME 6.5 fl (7.5-11.1); PLATELET COUNT 356 10^3/uL (134-434); RDW 15.4 % (11.9-15.9); WHITE BLOOD COUNT 15.2 K/mm3 (4.0-10.0)
[2022-11-21] MEDS: DUTASTERIDE 0.5 MG CAP (FP) PO SCH (11:24)
[2022-11-21] MEDS: CALCIUM 500MG/VIT-D 200 UNITS COMBO TABLET (FP) PO SCH (11:24)
[2022-11-21] MEDS: FUROSEMIDE 20 MG TABLET (FP) PO SCH (11:24)
[2022-11-21] MEDS: ASPIRIN COATED 81 MG TABLET.EC PO SCH (11:24)
[2022-11-21] MEDS: TAMSULOSIN HCL 0.4 MG CAP PO SCH (11:24)
[2022-11-21] MEDS: DOXYCYCLINE INJECTION 100 MG in DEXTROSE 5%-WATER 100 ML IVPB SCH ×2 (11:25→21:45)
[2022-11-21] MEDS: CEFTRIAXONE 1 GM in DEXTROSE 5%-WATER - 50 ML IVPB SCH (11:26)
[2022-11-21] MEDS: ATORVASTATIN CA 10 MG TABLET (FP) PO SCH (21:46)
[2022-11-22] MEDS: FUROSEMIDE 20 MG TABLET (FP) PO SCH (09:55)
[2022-11-22] MEDS: DUTASTERIDE 0.5 MG CAP (FP) PO SCH (09:55)
[2022-11-22] MEDS: CALCIUM 500MG/VIT-D 200 UNITS COMBO TABLET (FP) PO SCH (09:55)
[2022-11-22] MEDS: DOXYCYCLINE INJECTION 100 MG in DEXTROSE 5%-WATER 100 ML IVPB SCH ×2 (09:55→21:37)
[2022-11-22] MEDS: TAMSULOSIN HCL 0.4 MG CAP PO SCH (09:55)
[2022-11-22] MEDS: CEFTRIAXONE 1 GM in DEXTROSE 5%-WATER - 50 ML IVPB SCH (09:55)
[2022-11-22] MEDS: APIXABAN 2.5 MG TABLET PO SCH ×2 (11:20→21:37)
[2022-11-22] MEDS ORDERED: VASOPRESSIN 20 UNITS/ML VIAL IV ONE (12:19)
[2022-11-22] MEDS ORDERED: ESMOLOL HCL 100,000 MCG/10 ML VIAL ONE (12:20)
[2022-11-22] MEDS ORDERED: ROCURONIUM BROMIDE 50 MG/5 ML SYRINGE ONE (12:47)
[2022-11-22] MEDS ORDERED: SUGAMMADEX SODIUM 200 MG/2 ML VIAL ONE ×2 (13:06→13:07)
[2022-11-22] MEDS ORDERED: ONDANSETRON 4 MG/2 ML VIAL IVPUSH PRN (13:30)
[2022-11-22] MEDS: ATORVASTATIN CA 10 MG TABLET (FP) PO SCH (21:36)
[2022-11-23 09:38] LABS: BASO % 1.1 % (0-2.0); EOS % 2.8 % (0-4.5); HEMATOCRIT 28.9 % (35.4-49); HEMOGLOBIN 9.4 GM/dL (11.7-16.9); LYMPH % 20.7 % (8-40); MCH 25.5 pg (25.7-33.7); MCHC 32.7 g/dl (32.0-35.9); MEAN CELL VOLUME 78.1 fl (80-96); MEAN PLT VOLUME 6.3 fl (7.5-11.1); MONO % 8.8 % (3.8-10.2); NEUT % 66.6 % (42.8-82.8); PLATELET COUNT 321 10^3/uL (134-434); WHITE BLOOD COUNT 13.5 K/mm3 (4.0-10.0)
[2022-11-23] MEDS: CALCIUM 500MG/VIT-D 200 UNITS COMBO TABLET (FP) PO SCH (09:45)
[2022-11-23] MEDS: FUROSEMIDE 20 MG TABLET (FP) PO SCH (09:45)
[2022-11-23] MEDS: CEFTRIAXONE 1 GM in DEXTROSE 5%-WATER - 50 ML IVPB SCH (09:45)
[2022-11-23] MEDS: DUTASTERIDE 0.5 MG CAP (FP) PO SCH (09:45)
[2022-11-23] MEDS: TAMSULOSIN HCL 0.4 MG CAP PO SCH (09:46)
[2022-11-23 09:51] LABS: POTASSIUM 4.7 mmol/L (3.5-5.1)
[2022-11-23 09:57] LABS: BLOOD UREA NITROGEN 27.8 mg/dL (7-18)
[2022-11-23 10:00] LABS: CREATININE 1.1 mg/dL (0.55-1.3)
[2022-11-23] MEDS: DOXYCYCLINE INJECTION 100 MG in DEXTROSE 5%-WATER 100 ML IVPB SCH ×2 (10:35→22:45)
[2022-11-23] MEDS: APIXABAN 2.5 MG TABLET PO SCH (11:07)
[2022-11-23] MEDS: ATORVASTATIN CA 10 MG TABLET (FP) PO SCH (22:44)
[2022-11-23] MEDS: ACETAMINOPHEN 325 MG TABLET (FP) PO PRN (23:00)
[2022-11-23] MEDS: ALLOPURINOL 100 MG TABLET (FP) PO PRN (23:28)
[2022-11-24] MEDS ORDERED: traMADol HCL 50 MG TABLET PO ONE (02:10)
[2022-11-24] MEDS: FUROSEMIDE 20 MG TABLET (FP) PO SCH (09:29)
[2022-11-24] MEDS: CEFTRIAXONE 1 GM in DEXTROSE 5%-WATER - 50 ML IVPB SCH (09:29)
[2022-11-24] MEDS: TAMSULOSIN HCL 0.4 MG CAP PO SCH (09:29)
[2022-11-24] MEDS: DUTASTERIDE 0.5 MG CAP (FP) PO SCH (09:29)
[2022-11-24] MEDS: CALCIUM 500MG/VIT-D 200 UNITS COMBO TABLET (FP) PO SCH (09:29)
[2022-11-24] MEDS: DOXYCYCLINE INJECTION 100 MG in DEXTROSE 5%-WATER 100 ML IVPB SCH ×2 (09:30→22:10)
[2022-11-24] MEDS: ACETAMINOPHEN 325 MG TABLET (FP) PO PRN ×2 (09:48→16:23)
[2022-11-24] MEDS: ALLOPURINOL 100 MG TABLET (FP) PO PRN (16:23)
[2022-11-24] MEDS: ATORVASTATIN CA 10 MG TABLET (FP) PO SCH (22:10)
[2022-11-25] MEDS: ACETAMINOPHEN 325 MG TABLET (FP) PO PRN ×2 (01:31→12:18)
[2022-11-25 10:06] LABS: HEMATOCRIT 27.5 % (35.4-49); MCH 26.2 pg (25.7-33.7); MCHC 32.7 g/dl (32.0-35.9); MEAN CELL VOLUME 79.9 fl (80-96); MEAN PLT VOLUME 6.9 fl (7.5-11.1); PLATELET COUNT 389 10^3/uL (134-434); RBC 3.44 M/mm3 (4.00-5.60); WHITE BLOOD COUNT 15.2 K/mm3 (4.0-10.0)
[2022-11-25 10:23] LABS: POTASSIUM 4.3 mmol/L (3.5-5.1)
[2022-11-25 10:26] LABS: CALCIUM 9.6 mg/dL (8.5-10.1)
[2022-11-25 10:27] LABS: BLOOD UREA NITROGEN 22.5 mg/dL (7-18)
[2022-11-25] MEDS: DOXYCYCLINE INJECTION 100 MG in DEXTROSE 5%-WATER 100 ML IVPB SCH (12:17)
[2022-11-25] MEDS: CALCIUM 500MG/VIT-D 200 UNITS COMBO TABLET (FP) PO SCH (12:18)
[2022-11-25] MEDS: DUTASTERIDE 0.5 MG CAP (FP) PO SCH (12:18)
[2022-11-25] MEDS: FUROSEMIDE 20 MG TABLET (FP) PO SCH (12:18)
[2022-11-25] MEDS: CEFTRIAXONE 1 GM in DEXTROSE 5%-WATER - 50 ML IVPB SCH (12:18)
[2022-11-25] MEDS: TAMSULOSIN HCL 0.4 MG CAP PO SCH (12:19)
[2022-11-25 15:26] VITALS: BP 111/47; PULSE 82; RESP 20; TEMP 97.6
== END 2022-11-25 03:25 | disposition home health service (06) | DRG 951 ==
LOC: JER 23:52 → JERBED 11-20 04:46 → J8W 11-20 06:44 → OBSVTOIN 11-20 16:40
PROVIDERS: ADMIT Internal Medicine; ATTEND Family Medicine
PROC: 3E1K78Z Irrigation of Genitourinary Tract using Irrigating Substance, Via Natural or Artificial Opening (ICD-10-PCS; principal; 2022-11-21)
PROC: 0T9B70Z Drainage of Bladder with Drainage Device, Via Natural or Artificial Opening (ICD-10-PCS; 2022-11-21)
PROC: 3E1K78Z Irrigation of Genitourinary Tract using Irrigating Substance, Via Natural or Artificial Opening (ICD-10-PCS; 2022-11-22)
PROC: 0W3R8ZZ Control Bleeding in Genitourinary Tract, Via Natural or Artificial Opening Endoscopic (ICD-10-PCS; 2022-11-22)
PROC: 0T9B8ZZ Drainage of Bladder, Via Natural or Artificial Opening Endoscopic (ICD-10-PCS; 2022-11-22)
PROC: 0V508ZZ Destruction of Prostate, Via Natural or Artificial Opening Endoscopic (ICD-10-PCS; 2022-11-22)
DX: J18.9 Pneumonia, unspecified organism (principal); I25.119 Atherosclerotic heart disease of native coronary artery with unspecified angina pectoris; I13.0 Hypertensive heart and chronic kidney disease with heart failure and stage 1 through stage 4 chronic kidney disease, or unspecified chronic kidney disease; I48.0 Paroxysmal atrial fibrillation; I25.5 Ischemic cardiomyopathy; K21.9 Gastro-esophageal reflux disease without esophagitis; M10.9 Gout, unspecified; R41.82 Altered mental status, unspecified; N17.9 Acute kidney failure, unspecified; E78.5 Hyperlipidemia, unspecified; I50.9 Heart failure, unspecified; R05.9 Cough, unspecified; N28.1 Cyst of kidney, acquired; D62 Acute posthemorrhagic anemia; R31.0 Gross hematuria; R33.8 Other retention of urine; N40.1 Benign prostatic hyperplasia with lower urinary tract symptoms; E11.22 Type 2 diabetes mellitus with diabetic chronic kidney disease; N18.9 Chronic kidney disease, unspecified; Z95.0 Presence of cardiac pacemaker; R42 Dizziness and giddiness
CPT/HCPCS: 0241U-QW; 36415; 70450-TC; 71045-TC-FY; 71250-TC; 74176-TC; 80048; 80053; 81003; 82803; 82962; 83735; 83880; 84100; 84484; 85025; 85027; 85610; 85730; 86850; 86900; 86901; 87086; 87633; 87651; 87899; 93005; 93010; 94760; 97116-GP; 97161-GP; 99285-25; G0378

== ENCOUNTER 2022-11-30 15:33 | Observation (INO) | payer OTHER ==
[2022-11-30 15:40] VITALS: BMI 23.9
[2022-11-30] MEDS ORDERED: SODIUM CHLORIDE 0.9% 500 ML INFUS.BAG IV ONE ×2 (16:28→16:38)
[2022-11-30] MEDS ORDERED: VANCOMYCIN ORAL SOLUTION 125 MG/2.5 ML PO ONE (16:41)
[2022-11-30] MEDS ORDERED: ACETAMINOPHEN 1000 MG/100 ML BAG IVPB ONE (16:43)
[2022-11-30] MEDS ORDERED: ACETAMINOPHEN INJECTION 100 ML IVPB ONE (17:23)
[2022-11-30 17:45] LABS: BASO % 0.7 % (0-2.0); EOS % 3.3 % (0-4.5); HEMATOCRIT 25.8 % (35.4-49); HEMOGLOBIN 8.4 GM/dL (11.7-16.9); LYMPH % 17.9 % (8-40); MCH 25.6 pg (25.7-33.7); MCHC 32.6 g/dl (32.0-35.9); MEAN CELL VOLUME 78.4 fl (80-96); MEAN PLT VOLUME 5.9 fl (7.5-11.1); MONO % 8.9 % (3.8-10.2); NEUT % 69.2 % (42.8-82.8); PLATELET COUNT 561 10^3/uL (134-434); RBC 3.29 M/mm3 (4.00-5.60); RDW 15.5 % (11.9-15.9); WHITE BLOOD COUNT 12.6 K/mm3 (4.0-10.0)
[2022-11-30 18:06] LABS: CALCIUM 8.9 mg/dL (8.5-10.1)
[2022-11-30 18:07] LABS: BLOOD UREA NITROGEN 15.7 mg/dL (7-18); MAGNESIUM 2.2 mg/dL (1.8-2.4)
[2022-11-30 18:12] LABS: BILIRUBIN,TOTAL 0.4 mg/dL (0.2-1); TOT PROT 6.1 g/dl (6.4-8.2)
[2022-11-30 18:13] LABS: ALBUMIN 2.4 g/dl (3.4-5.0)
[2022-11-30] MEDS ORDERED: LIDOCAINE HCL 2% JELLY 10 ML CARTRIDGE PR ONE (18:49)
[2022-11-30] MEDS ORDERED: DICYCLOMINE HCL 10 MG CAPSULE PO ONE (19:16)
[2022-11-30] MEDS ORDERED: DICYCLOMINE HCL 10 MG CAPSULE ONE (19:17)
[2022-11-30] MEDS ORDERED: ALLOPURINOL 100 MG TABLET (FP) PO PRN (21:30)
[2022-11-30] MEDS: ATORVASTATIN CA 10 MG TABLET (FP) PO SCH (22:39)
[2022-12-01] MEDS: TAMSULOSIN HCL 0.4 MG CAP PO SCH (08:39)
[2022-12-01 09:05] LABS: BASO % 0.9 % (0-2.0); EOS % 4.1 % (0-4.5); HEMOGLOBIN 8.6 GM/dL (11.7-16.9); LYMPH % 14.7 % (8-40); MCH 25.9 pg (25.7-33.7); MEAN CELL VOLUME 78.6 fl (80-96); MEAN PLT VOLUME 5.9 fl (7.5-11.1); MONO % 7.5 % (3.8-10.2); NEUT % 72.8 % (42.8-82.8); PLATELET COUNT 586 10^3/uL (134-434); RDW 15.9 % (11.9-15.9); WHITE BLOOD COUNT 10.1 K/mm3 (4.0-10.0)
[2022-12-01] MEDS: SPIRONOLACTONE 25 MG TABLET PO SCH (09:19)
[2022-12-01] MEDS: FUROSEMIDE 20 MG TABLET (FP) PO SCH (09:19)
[2022-12-01] MEDS: DUTASTERIDE 0.5 MG CAP (FP) PO SCH (09:19)
[2022-12-01] MEDS: CALCIUM 500MG/VIT-D 200 UNITS COMBO TABLET (FP) PO SCH (09:19)
[2022-12-01 09:28] LABS: POTASSIUM 4.3 mmol/L (3.5-5.1)
[2022-12-01 09:34] LABS: ALBUMIN 2.3 g/dl (3.4-5.0)
[2022-12-01 09:38] LABS: CREATININE 0.8 mg/dL (0.55-1.3); TOT PROT 5.8 g/dl (6.4-8.2)
[2022-12-01 09:39] LABS: BILIRUBIN,TOTAL 0.4 mg/dL (0.2-1); BLOOD UREA NITROGEN 13.3 mg/dL (7-18)
[2022-12-01] MEDS: POLYETHYLENE GLYCOL (HEALTHYLAX) 3350 17 GM PACKET PO SCH ×2 (11:11→21:00)
[2022-12-01] MEDS ORDERED: CYCLOBENZAPRINE HCL 10 MG TABLET (FP) PO ONE (16:53)
[2022-12-01] MEDS ORDERED: KETOROLAC TROMETHAMINE 30 MG/1 ML VIAL IVPUSH ONE (16:53)
[2022-12-01] MEDS: PANTOPRAZOLE 40 MG TABLET PO SCH (17:55)
[2022-12-01] MEDS ORDERED: IRON SUCROSE INJECTION 200 MG in SODIUM CHLORIDE 90 ML IVPB ONE ×2 (19:00→20:00)
[2022-12-01] MEDS: ATORVASTATIN CA 10 MG TABLET (FP) PO SCH (21:01)
[2022-12-01] MEDS ORDERED: BANATROL PLUS POWDER PACKET PO SCH (22:00)
[2022-12-02] MEDS: TAMSULOSIN HCL 0.4 MG CAP PO SCH (08:21)
[2022-12-02 08:33] LABS: HEMATOCRIT 29.5 % (35.4-49); HEMOGLOBIN 9.5 GM/dL (11.7-16.9); MCH 25.7 pg (25.7-33.7); MEAN CELL VOLUME 80.4 fl (80-96); MEAN PLT VOLUME 6.2 fl (7.5-11.1); PLATELET COUNT 678 10^3/uL (134-434); RBC 3.68 M/mm3 (4.00-5.60); RDW 15.8 % (11.9-15.9); WHITE BLOOD COUNT 10.3 K/mm3 (4.0-10.0)
[2022-12-02 08:50] LABS: POTASSIUM 3.9 mmol/L (3.5-5.1)
[2022-12-02 08:54] LABS: CALCIUM 9.3 mg/dL (8.5-10.1)
[2022-12-02 08:55] LABS: ALBUMIN 2.4 g/dl (3.4-5.0); MAGNESIUM 2.1 mg/dL (1.8-2.4)
[2022-12-02 08:56] LABS: BLOOD UREA NITROGEN 17.4 mg/dL (7-18)
[2022-12-02 09:00] LABS: BILIRUBIN,TOTAL 0.4 mg/dL (0.2-1); TOT PROT 6.3 g/dl (6.4-8.2)
[2022-12-02] MEDS: SPIRONOLACTONE 25 MG TABLET PO SCH (09:20)
[2022-12-02] MEDS: DUTASTERIDE 0.5 MG CAP (FP) PO SCH (09:20)
[2022-12-02] MEDS: CALCIUM 500MG/VIT-D 200 UNITS COMBO TABLET (FP) PO SCH (09:20)
[2022-12-02] MEDS: PANTOPRAZOLE 40 MG TABLET PO SCH (09:20)
[2022-12-02] MEDS: FUROSEMIDE 20 MG TABLET (FP) PO SCH (09:20)
[2022-12-02] MEDS: POLYETHYLENE GLYCOL (HEALTHYLAX) 3350 17 GM PACKET PO SCH ×2 (09:21→21:35)
[2022-12-02 14:25] VITALS: RESP 18
[2022-12-02] MEDS ORDERED: ACETAMINOPHEN 325 MG TABLET (FP) PO PRN (17:53)
[2022-12-02] MEDS: ATORVASTATIN CA 10 MG TABLET (FP) PO SCH (21:35)
[2022-12-02] MEDS: ZINC OXIDE 20% TOPICAL OINTMENT 30 GM TUBE TP SCH (21:38)
[2022-12-03] MEDS: TAMSULOSIN HCL 0.4 MG CAP PO SCH (08:42)
[2022-12-03] MEDS: CALCIUM 500MG/VIT-D 200 UNITS COMBO TABLET (FP) PO SCH (09:26)
[2022-12-03] MEDS: SPIRONOLACTONE 25 MG TABLET PO SCH (09:26)
[2022-12-03] MEDS: FUROSEMIDE 20 MG TABLET (FP) PO SCH (09:26)
[2022-12-03] MEDS: PANTOPRAZOLE 40 MG TABLET PO SCH (09:26)
[2022-12-03] MEDS: POLYETHYLENE GLYCOL (HEALTHYLAX) 3350 17 GM PACKET PO SCH ×2 (09:26→21:45)
[2022-12-03] MEDS: DUTASTERIDE 0.5 MG CAP (FP) PO SCH (09:27)
[2022-12-03] MEDS: ZINC OXIDE 20% TOPICAL OINTMENT 30 GM TUBE TP SCH ×2 (09:29→21:46)
[2022-12-03] MEDS: ATORVASTATIN CA 10 MG TABLET (FP) PO SCH (21:45)
[2022-12-03 23:04] VITALS: BP 149/64; PULSE 92; TEMP 98.3
== END 2022-12-03 22:45 ==
LOC: JER 15:33 → JERBED 18:25 → J6S 21:36
PROVIDERS: ADMIT Internal Medicine; ATTEND Family Medicine
PROC: 3E033NZ Introduction of Analgesics, Hypnotics, Sedatives into Peripheral Vein, Percutaneous Approach (ICD-10-PCS; principal; 2022-11-30)
PROC: 3E0337Z Introduction of Electrolytic and Water Balance Substance into Peripheral Vein, Percutaneous Approach (ICD-10-PCS; 2022-11-30)
DX: I24.9 Acute ischemic heart disease, unspecified (principal); I48.0 Paroxysmal atrial fibrillation; Z95.0 Presence of cardiac pacemaker; I25.5 Ischemic cardiomyopathy; E78.00 Pure hypercholesterolemia, unspecified; I42.9 Cardiomyopathy, unspecified; R19.7 Diarrhea, unspecified; N40.0 Benign prostatic hyperplasia without lower urinary tract symptoms; E78.5 Hyperlipidemia, unspecified; Z95.5 Presence of coronary angioplasty implant and graft
CPT/HCPCS: 36415; 73521-TC-FY; 73590-TC-LT-FY; 73590-TC-RT-FY; 74018-TC-FY; 80053; 82272; 82728; 83540; 83550; 83605; 83735; 85025; 85027; 87045; 87046; 87209; 87324; 87449; 93005; 93010; 96365; 96375; 97116-GP; 97162-GP; 99285-25; G0378; J1756

== ENCOUNTER 2023-05-14 08:11 | Observation (INO) | payer OTHER ==
[2023-05-14 09:39] LABS: BASO % 0.8 % (0-2.0); EOS % 0.1 % (0-4.5); HEMATOCRIT 38.6 % (35.4-49); HEMOGLOBIN 12.1 GM/dL (11.7-16.9); LYMPH % 5.4 % (8-40); MCH 22.9 pg (25.7-33.7); MCHC 31.4 g/dl (32.0-35.9); MEAN CELL VOLUME 73.1 fl (80-96); MEAN PLT VOLUME 6.2 fl (7.5-11.1); MONO % 6.1 % (3.8-10.2); NEUT % 87.6 % (42.8-82.8); PLATELET COUNT 457 10^3/uL (134-434); RBC 5.28 M/mm3 (4.00-5.60); RDW 18.1 % (11.9-15.9); WHITE BLOOD COUNT 16.9 K/mm3 (4.0-10.0)
[2023-05-14 10:04] LABS: EPI CELLS 10 /uL (0-25.1); HYALINE CASTS 9 /uL (0-3.1); PH,URINE >= 9.0 (5.0-8.0); URINE APPEARANCE TURBID; URINE BACTERIA 3511 /uL (0-1359); URINE BILIRUBIN NEGATIVE (NEGATIVE); URINE COLOR ORANGE; URINE GLUCOSE (UA) NEGATIVE (NEGATIVE); URINE KETONE NEGATIVE (NEGATIVE); URINE LEUK ESTERASE 3+ (NEGATIVE); URINE NITRITE NEGATIVE (NEGATIVE); URINE PROTEIN 3+ (NEGATIVE); URINE UROBILINOGEN 0.2 mg/dL (0.2-1.0); URINE WBC 608 /uL (0-25.8)
[2023-05-14 10:07] LABS: CHLORIDE 100 mmol/L (98-107); SODIUM 130 mmol/L (136-145)
[2023-05-14 10:09] LABS: CALCIUM 9.4 mg/dL (8.5-10.1)
[2023-05-14 10:11] LABS: ALBUMIN 3.2 g/dl (3.4-5.0); BLOOD UREA NITROGEN 43.8 mg/dL (7-18); CO2 22 mmol/L (21-32); GLUCOSE,RANDOM 207 mg/dL (74-106)
[2023-05-14 10:13] LABS: CREATININE 1.8 mg/dL (0.55-1.3); SGOT/AST 55 U/L (15-37); SGPT/ALT 14 U/L (13-61)
[2023-05-14 10:14] LABS: BILIRUBIN,TOTAL 0.7 mg/dL (0.2-1); TOT PROT 8.1 g/dl (6.4-8.2)
[2023-05-14 10:16] LABS: ALK PHOS 98 U/L (45-117)
[2023-05-14 10:18] LABS: ANION GAP 8 mmol/L (4-13); POTASSIUM 7.3 mmol/L (3.5-5.1)
[2023-05-14] MEDS ORDERED: SODIUM CHLORIDE 0.9% 500 ML INFUS.BAG IV ONE ×2 (10:19→10:20)
[2023-05-14] MEDS ORDERED: CEFTRIAXONE 1 GM in DEXTROSE 5%-WATER - 100 ML IVPB ONE (10:19)
[2023-05-14] MEDS ORDERED: CEFTRIAXONE 1 GM/50 ML BAG ONE (10:39)
[2023-05-14 12:40] LABS: POTASSIUM 4.6 mmol/L (3.5-5.1)
[2023-05-14 12:41] LABS: CALCIUM 9.7 mg/dL (8.5-10.1)
[2023-05-14 12:42] LABS: BLOOD UREA NITROGEN 42.9 mg/dL (7-18)
[2023-05-14 12:45] LABS: CREATININE 1.5 mg/dL (0.55-1.3)
[2023-05-14 15:07] VITALS: BMI 21.2
[2023-05-14] MEDS: ATORVASTATIN CA 10 MG TABLET (FP) PO SCH (22:00)
[2023-05-15 09:22] LABS: BASO % 0.8 % (0-2.0); EOS % 2.7 % (0-4.5); HEMATOCRIT 34.8 % (35.4-49); HEMOGLOBIN 10.9 GM/dL (11.7-16.9); LYMPH % 19.1 % (8-40); MCH 22.8 pg (25.7-33.7); MCHC 31.2 g/dl (32.0-35.9); MEAN PLT VOLUME 6.4 fl (7.5-11.1); MONO % 9.5 % (3.8-10.2); NEUT % 67.9 % (42.8-82.8); PLATELET COUNT 408 10^3/uL (134-434); RBC 4.77 M/mm3 (4.00-5.60); RDW 17.6 % (11.9-15.9); WHITE BLOOD COUNT 13.1 K/mm3 (4.0-10.0)
[2023-05-15 09:38] LABS: POTASSIUM 4.2 mmol/L (3.5-5.1)
[2023-05-15 09:47] LABS: ALBUMIN 2.7 g/dl (3.4-5.0); BLOOD UREA NITROGEN 32.6 mg/dL (7-18)
[2023-05-15] MEDS: SPIRONOLACTONE 25 MG TABLET PO SCH (09:48)
[2023-05-15] MEDS: TAMSULOSIN HCL 0.4 MG CAP PO SCH (09:48)
[2023-05-15 09:49] LABS: CREATININE 1.1 mg/dL (0.55-1.3)
[2023-05-15 09:50] LABS: BILIRUBIN,TOTAL 0.8 mg/dL (0.2-1); TOT PROT 6.4 g/dl (6.4-8.2)
[2023-05-15] MEDS: CEFTRIAXONE 1 GM in DEXTROSE 5%-WATER - 50 ML IVPB SCH (13:20)
[2023-05-15] MEDS: ATORVASTATIN CA 10 MG TABLET (FP) PO SCH (21:24)
[2023-05-16 06:54] VITALS: RESP 18
[2023-05-16] MEDS: TAMSULOSIN HCL 0.4 MG CAP PO SCH (10:48)
[2023-05-16] MEDS: CEFTRIAXONE 1 GM in DEXTROSE 5%-WATER - 50 ML IVPB SCH (10:48)
[2023-05-16] MEDS: SPIRONOLACTONE 25 MG TABLET PO SCH (10:48)
[2023-05-16] MEDS: ATORVASTATIN CA 10 MG TABLET (FP) PO SCH (22:23)
[2023-05-17 06:52] VITALS: BP 149/63; PULSE 86; TEMP 98.1
[2023-05-17] MEDS: TAMSULOSIN HCL 0.4 MG CAP PO SCH (09:04)
[2023-05-17] MEDS: CEFTRIAXONE 1 GM in DEXTROSE 5%-WATER - 50 ML IVPB SCH (10:28)
[2023-05-17] MEDS: SPIRONOLACTONE 25 MG TABLET PO SCH (10:28)
[2023-05-17 11:25] LABS: HEMATOCRIT 34.9 % (35.4-49); MCH 23.1 pg (25.7-33.7); MCHC 31.5 g/dl (32.0-35.9); MEAN CELL VOLUME 73.4 fl (80-96); MEAN PLT VOLUME 6.4 fl (7.5-11.1); PLATELET COUNT 420 10^3/uL (134-434); RBC 4.75 M/mm3 (4.00-5.60); RDW 17.4 % (11.9-15.9); WHITE BLOOD COUNT 10.2 K/mm3 (4.0-10.0)
[2023-05-17 11:50] LABS: POTASSIUM 4.6 mmol/L (3.5-5.1)
[2023-05-17 11:59] LABS: BLOOD UREA NITROGEN 21.9 mg/dL (7-18); CALCIUM 9.4 mg/dL (8.5-10.1)
[2023-05-17 12:03] LABS: CREATININE 1.1 mg/dL (0.55-1.3)
== END 2023-05-17 17:11 | disposition home or self-care (01) ==
LOC: JER 08:11 → JERBED 10:45 → J5S 13:48
PROVIDERS: ADMIT Family Medicine; ATTEND Family Medicine
PROC: 3E03329 Introduction of Other Anti-infective into Peripheral Vein, Percutaneous Approach (ICD-10-PCS; principal; 2023-05-14)
PROC: 3E0337Z Introduction of Electrolytic and Water Balance Substance into Peripheral Vein, Percutaneous Approach (ICD-10-PCS; 2023-05-14)
DX: N39.0 Urinary tract infection, site not specified (principal); N17.9 Acute kidney failure, unspecified; Z95.0 Presence of cardiac pacemaker; R31.9 Hematuria, unspecified; I48.91 Unspecified atrial fibrillation; I25.10 Atherosclerotic heart disease of native coronary artery without angina pectoris; I11.0 Hypertensive heart disease with heart failure; E11.9 Type 2 diabetes mellitus without complications; I25.2 Old myocardial infarction; N40.0 Benign prostatic hyperplasia without lower urinary tract symptoms; Z96.0 Presence of urogenital implants; E78.5 Hyperlipidemia, unspecified; Z95.5 Presence of coronary angioplasty implant and graft; R14.0 Abdominal distension (gaseous)
CPT/HCPCS: 36415; 80048; 80053; 81003; 85025; 85027; 87086; 96365; 96376; 97116-GP; 97161-GP; 99285-25; G0378

== ENCOUNTER 2024-02-12 09:29 | Emergency (ER) | payer OTHER ==
[2024-02-12 09:36] VITALS: BMI 27.4
[2024-02-12] MEDS ORDERED: CEFTRIAXONE 1 GM/50 ML BAG ONE (12:46)
[2024-02-12] MEDS: CEFTRIAXONE 1,000 MG in DEXTROSE 5%-WATER - 50 ML IVPB ONE (12:54)
[2024-02-12 13:05] VITALS: BP 125/63; PULSE 82; RESP 18
[2024-02-12 13:06] VITALS: TEMP 97.4
== END 2024-02-12 13:31 | disposition home or self-care (01) ==
LOC: JER 09:29
DX: T83.9XXA Unspecified complication of genitourinary prosthetic device, implant and graft, initial encounter (principal); R33.9 Retention of urine, unspecified
CPT/HCPCS: 99284-25

== ENCOUNTER 2024-05-25 09:31 | Emergency (ER) | payer OTHER ==
[2024-05-25 09:43] VITALS: BMI 20.4
[2024-05-25] MEDS ORDERED: LIDOCAINE HCL 2% JELLY 11 ML TP ONE (11:22)
[2024-05-25] MEDS ORDERED: POLYETHYLENE GLYCOL (HEALTHYLAX) 3350 17 GM PACKET ONE (11:27)
[2024-05-25] MEDS: LIDOCAINE HCL 2% JELLY (30 ML/TUBE) TP ONE (11:27)
[2024-05-25] MEDS ORDERED: SENNOSIDES 8.6MG TABLET (FP) PO ONE (11:27)
[2024-05-25] MEDS: SENNOSIDES 8.6MG TABLET (FP) PO ONE (11:27)
[2024-05-25] MEDS: POLYETHYLENE GLYCOL (HEALTHYLAX) 3350 17 GM PACKET PO ONE (11:27)
[2024-05-25 12:06] LABS: EPI CELLS 2 /uL (0-25.1); HYALINE CASTS 0 /uL (0-3.1); PH,URINE 5.5 (5.0-8.0); URINE APPEARANCE CLOUDY; URINE BACTERIA 1339 /uL (0-1359); URINE BILIRUBIN NEGATIVE (NEGATIVE); URINE COLOR ORANGE; URINE GLUCOSE (UA) NEGATIVE (NEGATIVE); URINE KETONE NEGATIVE (NEGATIVE); URINE LEUK ESTERASE 3+ (NEGATIVE); URINE NITRITE NEGATIVE (NEGATIVE); URINE PROTEIN 2+ (NEGATIVE); URINE RBC 14447 /uL (0-23.9); URINE UROBILINOGEN 0.2 mg/dL (0.2-1.0); URINE WBC 2677 /uL (0-25.8)
[2024-05-25 13:13] VITALS: BP 115/67; PULSE 67; RESP 18; TEMP 97.4
== END 2024-05-25 13:50 | disposition home or self-care (01) ==
LOC: JER 09:31
DX: K59.00 Constipation, unspecified (principal); N39.0 Urinary tract infection, site not specified; R30.0 Dysuria; K62.89 Other specified diseases of anus and rectum
CPT/HCPCS: 74019-TC-FY; 76775-TC; 81003; 87086; 87186; 99283-25

== ENCOUNTER 2024-12-08 16:05 | Emergency (ER) | payer OTHER ==
[2024-12-08 16:25] VITALS: BP 152/76; PULSE 70; RESP 20; TEMP 97.7; BMI 20.5
[2024-12-08] MEDS ORDERED: FAMOTIDINE 20 MG/50 ML IVPB 20 MG/50 ML MG IVPB ONE (17:02)
[2024-12-08] MEDS ORDERED: LORATADINE 10 MG TABLET ONE (17:03)
[2024-12-08] MEDS: LORATADINE 10 MG TABLET PO ONE (17:05)
[2024-12-08] MEDS: FAMOTIDINE 20 MG/50 ML IVPB 20 MG/50 ML MG IVPB ONE (17:22)
[2024-12-08 17:37] LABS: ABSOLUTE IMMATURE GRANULOCYTES 0.03 x10^3/uL (0.0-0.031); BASOPHILS # 0.13 x10^3/uL (0.01-0.08); EOSINOPHIL % 9.6 % (0.8-7.0); EOSINOPHILS # 0.97 x10^3/uL (0.04-0.54); HEMATOCRIT 42.1 % (40.1-51.0); HEMOGLOBIN 12.9 g/dL (13.7-17.5); MCHC 30.6 g/dl (32.3-36.5); MEAN CELL VOLUME 74.6 fl (79.0-92.2); MEAN PLT VOLUME 8.1 fl (9.4-12.4); MONOCYTE # 1.06 x10^3/uL (0.30-0.82); MONOCYTE % 10.4 % (5.3-12.2); PLATELET COUNT 370 x10^3/uL (163-337); RDW 15.6 % (12.6-16.6)
[2024-12-08 17:47] LABS: ALBUMIN 3.7 g/dl (3.4-5.0); ALK PHOS 74 U/L (45-117); ANION GAP 8 mmol/L (4-13); BILIRUBIN,TOTAL 0.4 mg/dl (0.2-1); CALCIUM 9.7 mg/dl (8.5-10.1); CHLORIDE 99 mmol/L (98-107); CO2 26 mmol/L (21-32); CREATININE 0.9 mg/dl (0.6-1.3); GLUCOSE,RANDOM 126 mg/dl (74-106); POTASSIUM 4.2 mmol/L (3.5-5.1); SGOT/AST 15 U/L (15-37); SGPT/ALT 9 U/L (7-52); SODIUM 133 mmol/L (136-145); TOT PROT 6.9 g/dl (6.4-8.2)
== END 2024-12-08 18:29 | disposition home or self-care (01) ==
LOC: FER 16:05
PROC: 3E033GC Introduction of Other Therapeutic Substance into Peripheral Vein, Percutaneous Approach (ICD-10-PCS; principal; 2024-12-08)
DX: L29.9 Pruritus, unspecified (principal); R21 Rash and other nonspecific skin eruption; R63.8 Other symptoms and signs concerning food and fluid intake; R63.4 Abnormal weight loss
CPT/HCPCS: 36415; 80053; 83735; 85025; 99284-25